=== PATIENT | female | born 1970 | race Caucasian/White ===

== ENCOUNTER 2019-12-22 09:28 | Emergency (ER) | payer OTHER, SELFPAY ==
--- NOTE | 2019-12-22 09:31 | ED.GENADULT ---
HPI - General Adult General Chief complaint: Ear Stated complaint: Ear pain Time Seen by Provider: 12/22/19 09:53 Source: patient Mode of arrival: ambulatory Limitations: no limitations History of Present Illness HPI narrative: 49-year-old female patient presents to the [facility] with complaints of left ear pain for the past 2 weeks that is gotten increasingly worse last couple of days. Denies any fever. Patient states he she has had a little bit of a runny nose and stuffy nose and some drainage of the throat. Patient denies any coughing, chest pain or shortness of breath. Patient states she has been trying to take [id number] Tylenol cold and sinus along with some Benadryl which has given minimal relief. Patient states she has had issues with allergies before in the past. Patient states that she is an active smoker. Related Data Allergies Allergy/AdvReac Type Severity Reaction Status Date / Time Sulfa (Sulfonamide AdvReac headache Verified 11/04/12 12:32 Antibiotics) Review of Systems Review of Systems: Narrative: CONSTITUTIONAL: Denies fever, chills, or sweats. EYES: Denies visual changes, redness, or discharge. ENT:positive rhinorrhea, congestion, denies sore throat, positive left otalgia. CARDIOVASCULAR: Denies chest pain, palpitations, or edema. RESPIRATORY: Denies cough or dyspnea. GASTROINTESTINAL: Denies abdominal pain, nausea, vomiting, or diarrhea. GENITOURINARY: Denies dysuria or hematuria. SKIN: Denies rash or itching. MUSCULOSKELETAL: Denies back pain, joint pain, or myalgia. NEUROLOGIC: Denies headache, numbness, or weakness. PSYCHIATRIC: Denies anxiety or depression. PMFSH Comments At the time of my signature I agree with nursing past medical history, surgical, social, and family history. There is no relevant family history pertinent to the presenting complaint. Exam Narrative: Exam Narrative: GENERAL: Well-appearing, well-nourished, and in no acute distress. HEAD: Normocephalic, atraumatic. EYES: PERRLA and EOMI. ENT: Nares with errythema, clear rhinorrhea, no epistaxis. Mucous membranes moist. posterior throat with no errythema, excudates, or tonsil enlargement. Left TM with errythema and slight errythema noted to the cannal. NECK: Supple. No lymphadenopathy CHEST: Clear to auscultation. No respiratory distress. HEART: Regular rate and rhythm. No murmur heard. Normal peripheral pulses. ABDOMEN: Soft, nontender, nondistended, normal active bowel sounds. EXTREMITIES: Normal range of motion. No edema. SKIN: Warm, dry, no rash. NEURO: No focal deficits. Alert and oriented x3. Course Vital Signs Vital signs: Vital Signs Temperature 37.4 C 12/22/19 09:40 Pulse Rate 63 12/22/19 09:40 Respiratory Rate 18 12/22/19 09:40 Blood Pressure 113/67 12/22/19 09:40 Pulse Oximetry 100 12/22/19 09:40 Temperature 37.4 C 12/22/19 09:40 Pulse Rate 63 12/22/19 09:40 Respiratory Rate 18 12/22/19 09:40 Blood Pressure 113/67 12/22/19 09:40 Pulse Oximetry 100 12/22/19 09:40 Vital signs reviewed Medical Decision Making Differential Diagnosis Differential Diagnosis: Differential diagnosis: Otitis media, otitis externa, perforated TM, infection of the outer ear, foreign body or cerumen impaction, ruptured TM, acute mastoiditis, ligament otitis externa, dehydration, pneumonia, sepsis, dental or intraoral infection, TMJ dysfunction Notify patient that it does appear that she has a developing ear infection to the left ear. Discussed with her that our plan of care today is to discharge her home with oral antibiotics for the ear infection along with a daily antihistamine and nasal steroid to help with the sinus drainage. Discussed with patient she may take Tylenol and ibuprofen as needed for the pain. Discussed with patient that if she has worsening symptoms she will need to see her primary doctor. Patient verbalized understanding denies any other questions or concerns at this time
[2019-12-22 09:40] VITALS: BP 113/67; PULSE 63; RESP 18; TEMP 37.4; O2SAT 100
== END 2019-12-22 10:05 | disposition home or self-care (01) ==
PROVIDERS: Emergency Provider Nurse Practitioner Family
DX: H66.92 Otitis media, unspecified, left ear (principal); J30.2 Other seasonal allergic rhinitis
CPT/HCPCS: 99203; G0463

== ENCOUNTER 2020-01-31 10:38 | Emergency (ER) | payer OTHER, SELFPAY ==
[2020-01-31 10:44] VITALS: BP 112/67; PULSE 70; RESP 16; TEMP 37.3; O2SAT 100
--- NOTE | 2020-01-31 10:45 | ED.EAR ---
HPI - Ear Problem General Chief complaint: Ear Stated complaint: ear pain/pressure/dizzy Time Seen by Provider: 01/31/20 10:45 Source: patient and RN notes reviewed History of Present Illness HPI Narrative: Patient is a 49-year-old female who presents the urgent care with complaints of left ear pain, pressure and dizziness. Patient states that she was treated approximately 1 month ago for a left ear infection and at that time she was given amoxicillin, Zyrtec, Flonase. Patient states that she took the medication as directed and initially did feel better . Patient states as of 1 week ago the pain has returned with some mild left facial swelling. Patient denies of any dental pain. States that she has been taking Benadryl. Denies of any known fever, chills, nausea, vomiting. No other acute complaints. No acute distress noted. Patient read the plan of care. Related Data Allergies Allergy/AdvReac Type Severity Reaction Status Date / Time Sulfa (Sulfonamide AdvReac headache Verified 01/31/20 10:54 Antibiotics) Review of Systems Review of Systems: Narrative: CONSTITUTIONAL: Denies fever, chills, or sweats. EYES: Denies visual changes, redness, or discharge. ENT: Reports of left ear pressure and pain with mild left facial swelling CARDIOVASCULAR: Denies chest pain, palpitations, or edema. RESPIRATORY: Denies cough or dyspnea. GASTROINTESTINAL: Denies abdominal pain, nausea, vomiting, or diarrhea. GENITOURINARY: Denies dysuria or hematuria. SKIN: Denies rash or itching. MUSCULOSKELETAL: Denies back pain, joint pain, or myalgia. NEUROLOGIC: Denies headache, numbness, or weakness. All other systems reviewed are negative, except as documented in HPI. PMFSH Comments At the time of my signature, I reviewed and agree with the nursing past medical, surgical, social, and family history. There is no relevant family history pertinent to the patient complaint. Exam Narrative: Exam Narrative: GENERAL: This is a well-nourished, well-developed patient, in no apparent distress. HEAD: normocephalic, atraumatic. Mild frontal sinus tenderness without any notable facial swelling EYES: PERRL. Sclera clear/white. Vision is grossly intact. EARS: External ears normal, auditory canals clear and without drainage, TMs normal without perforation. Hearing grossly intact. NOSE: External nose normal with no obvious nasal discharge, nares without redness, no rhinorrhea. THROAT: Mucous membranes moist, posterior pharynx clear. Moderate postnasal drainage NECK: Neck supple, non-tender without lymphadenopathy CARDIOVASCULAR: Regular rate and rhythm without murmurs, gallops, or rubs. RESPIRATORY: Clear to auscultation. Breath sounds equal bilaterally. No wheezes, rales, or rhonchi. SKIN: warm, intact with no suspicious lesions or rash, good texture and turgor. NEURO: awake, alert, and oriented to person, place and time. There were no obvious focal neurologic abnormalities. EXTREMITIES: No clubbing, cyanosis, or edema. Course Vital Signs Vital signs: Vital Signs Temperature 99.1 F 01/31/20 10:44 Pulse Rate 70 01/31/20 10:44 Respiratory Rate 16 01/31/20 10:44 Blood Pressure 112/67 01/31/20 10:44 Pulse Oximetry 100 01/31/20 10:44 Temperature 99.1 F 01/31/20 10:44 Pulse Rate 70 01/31/20 10:44 Respiratory Rate 16 01/31/20 10:44 Blood Pressure 112/67 01/31/20 10:44 Pulse Oximetry 100 01/31/20 10:44 Reviewed Medical Decision Making MDM Narrative Medical decision making narrative: Advised the patient to continue using Flonase and Zyrtec as directed. If condition worsens with severe pain or fever?go to the emergency room. Otherwise follow-up with ENT may be helpful. May use meclizine as needed for dizziness. If you find the meclizine is not improving the symptoms, and the dizziness is more severe and frequent?go to the emergency room. Follow-up with your PCP within 2 to 5 days or for worsening symptoms or failure to improve.
== END 2020-01-31 11:04 | disposition home or self-care (01) ==
PROVIDERS: Emergency Provider Nurse Practitioner Family
DX: H92.02 Otalgia, left ear (principal)
CPT/HCPCS: 99213; G0463

== ENCOUNTER 2023-08-27 17:03 | Emergency (ER) | payer OTHER, SELFPAY ==
[2023-08-27 17:31] VITALS: BP 132/64; PULSE 62; RESP 16; TEMP 37.3; O2SAT 100
== END 2023-08-27 17:46 | disposition left against medical advice (07) ==
LOC: EXPBETH 17:10
PROVIDERS: Emergency Provider Nurse Practitioner; PCP Internal Medicine
DX: R10.13 Epigastric pain (principal)
CPT/HCPCS: 99199